=== PATIENT | male | born 1970 | race Caucasian/White ===

== ENCOUNTER 2017-03-06 22:28 | Emergency (ER) | payer SELFPAY ==
[2017-03-06 21:54] LABS: BASOPHIL# 0.1 X10e3 (0-0.3); BASOPHIL% 0.5 % (0-2.5); EOSINOPHIL% 0.3 % (0.0-7.0); HEMATOCRIT 44.9 % (38.0-50.0); LYMPHOCYTE# 1.3 X10e3 (1.0-3.5); LYMPHOCYTE% 11.3 % (17.0-45.0); MEAN CELL VOLUME 81.3 FL (83-96); MEAN CORPUSCULAR HEMOGLOBIN 27.2 PG (28-34); MEAN CORPUSCULAR HGB CONC 33.5 g/dL (30-36); MEAN PLATELET VOLUME 8.4 FL (6.5-11.5); MONOCYTE# 0.5 X10e3 (0-1.0); MONOCYTE% 4.5 % (3.0-12.0); NEUTROPHIL# 9.7 X10e3 (1.5-7.1); NEUTROPHIL% 83.4 % (40-75); PLATELET COUNT 264 X10e3 (140-420); RED BLOOD COUNT 5.53 X10e (3.90-5.60); RED CELL DISTRIBUTION WIDTH 13.8 % (11.0-15.5); WHITE BLOOD COUNT 11.7 X10e3 (4.0-10.5)
[2017-03-06 21:55] LABS: DIFF IND NO
[2017-03-06 22:22] LABS: ALBUMIN SERUM 4.7 g/dL (3.5-5.0); BILIRUBIN, DIRECT 0.2 mg/dL (0.0-0.2); BILIRUBIN,INDIRECT 1.5 mg/dL (0.0-0.9); BILIRUBIN,TOTAL 1.7 mg/dL (0.2-2.0); BUN/CREATININE RATIO 16.66; CALCIUM SERUM 9.1 mg/dL (8.4-10.2); CREATININE SERUM 0.9 mg/dL (0.6-1.4); GLOM FILT RATE Estimated 102.8 mL/min (>60); POTASSIUM 3.6 mmol/L (3.5-5.1); PROTEIN TOTAL SERUM 8.1 g/dL (6.0-8.3)
[~2017-03-06 22:28] MED LIST: ANUSOL-HC CREAM30 GM TOP; ASPIRIN PO; ASPIRIN81 M2 PO; CERTAGEN PO; FLOMAX0.4 M1 PO; HYDROCODONE-APA1 T58 PO; KEFLEX500 M1 PO; LODINE XL PO; LORTAB 7.5-5001 TAB PO; NO MEDICATIONS; NORCO 10-325 TA1 TAB PO; PHENERGAN PO; PHENERGAN25 M1 PO; PRILOSEC PO; PYRIDIUM PO; TUMS
== END 2017-03-06 22:30 | disposition left against medical advice (07) ==
LOC: CED 22:28
DX: Z53.21 Procedure and treatment not carried out due to patient leaving prior to being seen by health care provider (principal)
CPT/HCPCS: 80048; 80076; 83690; 85025